=== PATIENT | male | born 1970 | race Two or more races ===

== ENCOUNTER 2018-02-08 18:12 | Emergency (ER) | payer OTHER ==
[~2018-02-08] VITALS: Ht 165.1 cm; Wt 70.3 kg
[2018-02-08] MEDS ORDERED: NKM (19:45)
[2018-02-08] MEDS ORDERED: IBUPROFEN600 MG ORAL (19:49)
[2018-02-08] MEDS ORDERED: Ketorolac 30mg Inj IM ONE (20:00)
[2018-02-08 20:30] VITALS: BP 159/117
[2018-02-08 20:34] VITALS: BP 134/99
--- NOTE | 2018-02-09 15:51 | Emergency Room Report ---
History of Present Illness General Chief Complaint: Multiple Trauma/Fall Source: Patient Present Illness HPI 47-year-old male presents ED for evaluation. Patient states he had a mechanical trip and fall at work 2 days ago. Complaining of some right-sided t elbow pain, upper back pain and shoulder pain. Pain is dull, 7 out of 10, nonradiating. Denies any other injuries. Denies chest pain or shortness of breath. No other aggravating or relieving factors. Denies any other associated symptoms Allergies: Coded Allergies: No Known Allergies (Unverified , 02/08/18) Patient History Past Medical History: DM, HTN Past Surgical History: none Pertinent Family History: none Social History: Denies: smoking, alcohol use, drug use Immunizations: UTD Reviewed Nursing Documentation: PMH: Agreed, PSxH: Agreed Nursing Documentation-PMH Hx Hypertension: Yes Hx Diabetes: Yes Review of Systems All Other Systems: negative except mentioned in HPI Physical Exam Vital Signs Date Time Temp Pulse Resp B/P (MAP) Pulse Ox O2 Delivery O2 Flow Rate FiO2 02/08/18 19:39 98.7 87 16 159/117 97 Room Air 98.8 Sp02 EP Interpretation: reviewed, normal General Appearance: no apparent distress, alert, GCS 15, non-toxic Head: normocephalic Eyes: bilateral eye normal inspection, bilateral eye PERRL ENT: hearing grossly normal, normal pharynx, no angioedema, normal voice Neck: full range of motion, no bony tend, supple/symm/no masses Respiratory: chest non-tender, lungs clear, normal breath sounds, speaking full sentences Cardiovascular #1: regular rate, rhythm, no edema Gastrointestinal: normal inspection Rectal: deferred Genitourinary: no CVA tenderness Musculoskeletal: normal range of motion, tender - R shoulder, R elbow Neurologic: alert, oriented x3, responsive, motor strength/tone normal, sensory intact, speech normal Psychiatric: normal inspection Skin: normal inspection Lymphatic: normal inspection Medical Decision Making Diagnostic Impression: Primary Impression: Elbow contusion Qualified Codes: S50.01XA - Contusion of right elbow, initial encounter Additional Impression: Multiple injuries due to trauma ER Course Hospital Course 47-year-old male presents to ED complaining of right shoulder pain and right elbow pain and some upper back pain status post trip and fall 2 days ago Differential diagnoses include: fracture, contusion, dislocation Clinical course Patient placed on stretcher. After initial history and physical exam reveals male in no acute distress. There is no vertebral body tenderness. Some paraspinal thoracic pain. Some mild tenderness to the right shoulder and right elbow. No bruising or crepitus. Full range of motion. No deformity. I do not suspect any fracture or dislocation. Imaging is not indicated at this time. Given Toradol here with pain improved. discussed findings with patient Diagnosis -elbow contusion Stable and discharged to home with prescription for Motrin. Followup with PMD. Return to ED if symptoms recur or worsen Last Vital Signs Date Time Temp Pulse Resp B/P (MAP) Pulse Ox O2 Delivery O2 Flow Rate FiO2 02/08/18 20:34 74 16 134/99 97 Room Air 02/08/18 20:31 98.7 Status: improved Disposition: HOME, SELF-CARE Condition: Stable Scripts Ibuprofen* (MOTRIN*) 600 Mg Tablet 600 MG ORAL Q8H Y for For Pain, #30 TAB 0 Refills Prov: EDMUNDO SORIANO M.D. 02/08/18 Referrals: NOT CHOSEN IPA/,REFERRING (PCP) Departure Forms: Return to Work Return to Work Date: Feb 09, 2018 Work Restrictions: No Heavy Lifting Patient Instructions: Elbow Contusion, [id number] EDMUNDO SORIANO M.D. Feb 09, 2018 15:51
== END 2018-02-08 20:30 | disposition home or self-care (01) ==
LOC: EMR 19:50
DX: S50.01XA Contusion of right elbow, initial encounter (principal); S29.8XXA Other specified injuries of thorax, initial encounter; S49.91XA Unspecified injury of right shoulder and upper arm, initial encounter; W01.0XXA Fall on same level from slipping, tripping and stumbling without subsequent striking against object, initial encounter; Y92.511 Restaurant or cafe as the place of occurrence of the external cause; Y99.0 Civilian activity done for income or pay; I10 Essential (primary) hypertension; E11.9 Type 2 diabetes mellitus without complications
CPT/HCPCS: 96372; 99283; J1885